=== PATIENT | male | born 1975 | race Caucasian/White ===

== ENCOUNTER 2020-07-11 09:51 | Outpatient (CLI) | payer OTHER, SELFPAY ==
--- NOTE | 2020-07-11 10:03 | EST_ITS ---
Patient Info Name: Kyaw Souza Age: 44 years : 1975 Gender: Male Ht: 71 in Wt: 160 lbs BSA: 1.91 m2 Exam Date: 07/11/2020 10:12 AM Exam Location: [facility] Stress Patient Status: Outpatient Admit Date: 07/11/2020 Staff Ordering Physician: Trish Moses NP Attending Provider: Trish Moses NP Exercise Technologist: Rosibel Pimentel CT Exercise Physician: José Luis Marte DO Exam Type: CA stress test treadmill Study Info An exercise stress test was performed. Summary 1. 1. Negative Ethan exercise stress test for ischemic ST changes by ECG criteria. 2. 2. Good functional capacity, achieving 12 METs of workload. 3. 3. Appropriate HR response to exercise. 4. 4. Appropriate HR recovery at 1 minute post exercise. 5. 5. No imaging with stress testing. 6. 6. Patient informed of the above results. Protocol: Ethan Stress ECG Details Stage: REST Duration (min): 1 min : 2 sec Speed (mph): 0.0 Grade (%): 0 HR (bpm): 74 SBP (mmHg): 109 DBP (mmHg): 74 METS: --- Stage: REST Duration (min): 11 min : 39 sec Speed (mph): 0.0 Grade (%): 0 HR (bpm): 86 SBP (mmHg): 109 DBP (mmHg): 74 METS: --- Stage: STAGE 1 Duration (min): 1 min : 0 sec Speed (mph): 1.7 Grade (%): 10 HR (bpm): 94 SBP (mmHg): 109 DBP (mmHg): 74 METS: --- Stage: STAGE 1 Duration (min): 2 min : 0 sec Speed (mph): 1.7 Grade (%): 10 HR (bpm): 94 SBP (mmHg): 109 DBP (mmHg): 74 METS: --- Stage: STAGE 1 Duration (min): 3 min : 0 sec Speed (mph): 1.7 Grade (%): 10 HR (bpm): 91 SBP (mmHg): 115 DBP (mmHg): 70 METS: --- Stage: STAGE 2 Duration (min): 1 min : 0 sec Speed (mph): 2.5 Grade (%): 12 HR (bpm): 101 SBP (mmHg): 115 DBP (mmHg): 70 METS: --- Stage: STAGE 2 Duration (min): 2 min : 0 sec Speed (mph): 2.5 Grade (%): 12 HR (bpm): 105 SBP (mmHg): 125 DBP (mmHg): 70 METS: --- Stage: STAGE 2 Duration (min): 3 min : 0 sec Speed (mph): 2.5 Grade (%): 12 HR (bpm): 108 SBP (mmHg): 125 DBP (mmHg): 70 METS: --- Stage: STAGE 3 Duration (min): 1 min : 0 sec Speed (mph): 3.4 Grade (%): 14 HR (bpm): 120 SBP (mmHg): 126 DBP (mmHg): 69 METS: --- Stage: STAGE 3 Duration (min): 2 min : 0 sec Speed (mph): 3.4 Grade (%): 14 HR (bpm): 122 SBP (mmHg): 126 DBP (mmHg): 69 METS: --- Stage: STAGE 3 Duration (min): 3 min : 0 sec Speed (mph): 3.4 Grade (%): 14 HR (bpm): 123 SBP (mmHg): 135 DBP (mmHg): 67 METS: --- Stage: STAGE 4 Duration (min): 1 min : 0 sec Speed (mph): 4.2 Grade (%): 16 HR (bpm): 148 SBP (mmHg): 135 DBP (mmHg): 67 METS: --- Stage: STAGE 4 Duration (min): 2 min : 0 sec Speed (mph): 4.2 Grade (%): 16 HR (bpm): 164 SBP (mmHg): 169
== END 2020-07-11 09:52 | disposition home or self-care (01) ==
PROVIDERS: PCP Family Medicine; Visit Provider Nurse Practitioner
DX: R07.9 Chest pain, unspecified (principal)
CPT/HCPCS: 93017

== ENCOUNTER → 2021-07-02 12:48 | Outpatient (CLI) | payer OTHER, SELFPAY ==
--- NOTE | ~2021-07-02 | US_ITS ---
US scrotum doppler INDICATION: Left testicular pain TECHNIQUE: Testicular sonogram utilizing grayscale and color Doppler FINDINGS: The testes are normal in size and appearance. No focal lesions are seen. The right testes measures 4.9 x 2.4 x 2.7 cm centimeters, and the left testis measures 4.7 x 2.3 x 3.2 cm cm. There is normal vascular flow to both testes. There are bilateral epididymal cysts, largest on the left measu ring 11 mm. The right and left epididymides appear normal. There is no varicocele or hydrocele. IMPRESSION: 1. Bilateral epididymal cysts. Reviewed, dictated and finalized at location A.
== END ==
PROVIDERS: PCP Family Medicine; Visit Provider Family Medicine
DX: N50.3 Cyst of epididymis (principal)
CPT/HCPCS: 76870; 93976

== ENCOUNTER 2021-07-22 11:32 | Emergency (ER) | payer OTHER, SELFPAY ==
[2021-07-22 11:42] VITALS: BP 133/87; PULSE 121; RESP 16; TEMP 36.3; O2SAT 100
[2021-07-22] MEDS: AMOXICILLIN/CLAVULANATE K 875-125 MG TAB 1 TABLET PO (13:02)
--- NOTE | 2021-07-22 13:25 | ED.GENADULT ---
HPI - General Adult General Chief complaint: Animal Bite <Ravi Ramsey DO - Last Filed: 07/22/21 14:27> Stated complaint: L hand injury, dog bite <Ravi Ramsey DO - Last Filed: 07/22/21 14:27> Time Seen by Provider: 07/22/21 12:47 <Ravi Ramsey DO - Last Filed: 07/22/21 14:27> Source: RN notes reviewed <Ravi Ramsey DO - Last Filed: 07/22/21 14:27> History of Present Illness HPI narrative: Patient presents emergency room from home for dog bite. Patient states he was on the trail today when he came up on someone who is following him to go individual the phone and patient's dog bit him in the left hand. Patient states that he did dress the wound came to the emergency department as he feels he is likely need sutures. States that the dog did belong to the leadership coach but is unsure of who the leadership coach was. He states he is up-to-date on his tetanus shot denies any other trauma or injury denies any numbness or tingling in extremity <Ravi Ramsey DO - Last Filed: 07/22/21 14:27> Related Data Allergies/adverse reactions: Allergies Allergy/AdvReac Type Severity Reaction Status Date / Time No Known Allergies Allergy Verified 07/22/21 12:04 <Ravi Ramsey DO - Last Filed: 07/22/21 14:27> Review of Systems Review of Systems: Gen.: Denies fevers or chills Musculoskeletal: See HPI Neuro: Denies numbness, tingling, weakness Skin: Denies rash Endo: Denies DM <Ravi Ramsey DO - Last Filed: 07/22/21 14:27> PMF Past Medical History Medical History: Medical History Combined hyperlipidemia History of COVID-19 Vitamin D deficiency <Ravi Ramsey DO - Last Filed: 07/22/21 14:27> Family History Family History: Family History Grandparent Cancer Acute myocardial infarction Father Hyperlipidemia Grandparent Heart disease [place] Grandparent Cancer breast cancer Grandparent Cancer lung cancer <DO Vijay Galicia Last Filed: 07/22/21 14:27> Social History Social History: Social History Smoking status: Never smoker Drinks per week: 4 <Ravi Ramsey DO - Last Filed: 07/22/21 14:27> Exam Narrative: APPEARANCE: No acute distress, nontoxic, resting in bed Eyes: EOMI HEENT: Normocephalic, atraumatic, RESPIRATORY: No respiratory distress MUSCULOSKELETAl: Mild tenderness palpation over the left thenar eminence with a 4 cm V-shaped wound that is linear and deep with mild venous bleeding no foreign body seen there is no tenderness of the dorsal hand in this area he has full flexion-extension of all 5 MCP and IP joints radial pulse 2+ neurovascular intact NEURO: Awake and alert. Following commands, speech normal, no focal deficits SKIN:: Warm, dry. Normal Color no rash or lesions <DO Vijay Galicia Last Filed: 07/22/21 14:27> Course Course Emergency Course: Discussed with patient results of workup and diagnosis. Discussed need for follow-up with primary care, proper use of medication, and reasons to return to the emergency department. Patient understands and agrees to current treatment plan <DO Vijay Galicia Last Filed: 07/22/21 14:27> Vital Signs Vital signs: Vital Signs Temperature 36.3 C L 07/22/21 11:42 Pulse Rate 121 H 07/22/21 11:42 Respiratory Rate 16 07/22/21 11:42 Blood Pressure 133/87 07/22/21 11:42 Pulse Oximetry 100 07/22/21 11:42 Oxygen Delivery Room Air 07/22/21 11:42 Temperature 36.3 C L 07/22/21 11:42 Pulse Rate 121 H 07/22/21 11:42 Respiratory Rate 16 07/22/21 11:42 Blood Pressure 133/87 07/22/21 11:42 Pulse Oximetry 100 07/22/21 11:42 Oxygen Delivery Room Air 07/22/21 11:42 <DO Vijay Galicia Last Filed: 07/22/21 14:27> Vital Signs Temperat
== END 2021-07-22 14:40 | disposition home or self-care (01) ==
PROVIDERS: Emergency Provider Emergency Medicine; PCP Family Medicine
DX: S61.452A Open bite of left hand, initial encounter (principal); E78.5 Hyperlipidemia, unspecified; Z86.16 Personal history of COVID-19; W54.0XXA Bitten by dog, initial encounter
CPT/HCPCS: 12001; 99283; A9270

== ENCOUNTER 2022-03-27 09:49 | Outpatient (CLI) | payer OTHER, SELFPAY ==
[2022-03-28 08:59] LABS: Kit Draw Collected
== END 2022-03-27 09:50 | disposition home or self-care (01) ==
LOC: ANHGOSHLAB 09:51
PROVIDERS: PCP Family Medicine; Visit Provider Family Medicine
DX: E53.8 Deficiency of other specified B group vitamins (principal); R73.9 Hyperglycemia, unspecified; Z79.899 Other long term (current) drug therapy; E78.2 Mixed hyperlipidemia; Z13.29 Encounter for screening for other suspected endocrine disorder; E55.9 Vitamin D deficiency, unspecified; Z00.00 Encounter for general adult medical examination without abnormal findings
CPT/HCPCS: 36415

== ENCOUNTER 2024-07-09 10:49 | Emergency (ER) | payer OTHER, SELFPAY ==
[2024-07-09 11:06] VITALS: BP 113/80; PULSE 70; RESP 16; TEMP 36.6; O2SAT 99
--- NOTE | 2024-07-09 11:08 | ED.LOWEXIN ---
HPI - Extremity Injury (Lower) General Chief Complaint: Wound/Laceration Stated Complaint: LT Leg Injury Time Seen by Provider: 07/09/24 11:08 Source: patient Mode of arrival: ambulatory Limitations: no limitations History of Present Illness HPI Narrative: 48-year-old male presents with laceration to left thigh. Prior to arrival patient was moving landscaping rocks to dig a trench in his yard and rock slipped and hit against left inner thigh causing laceration. Ambulatory with steady gait. Bleeding controlled on arrival. Unsure of last tetanus. All systems reviewed and negative except as noted above. Related Data Home Medications ?Medication ?Instructions ?Recorded ?Confirmed ?Last Taken ?Type No Home Medications 03/30/23 03/30/24 Unknown History Allergies Allergy/AdvReac Type Severity Reaction Status Date / Time No Known Allergies Allergy Verified 07/09/24 11:10 Review of Systems Review of Systems: CONSTITUTIONAL: Denies fever, chills, or sweats. EYES: Denies visual changes, redness, or discharge. ENT: Denies rhinorrhea, congestion, sore throat, or otalgia. CARDIOVASCULAR: Denies chest pain, palpitations, or edema. RESPIRATORY: Denies cough or dyspnea. GASTROINTESTINAL: Denies abdominal pain, nausea, vomiting, or diarrhea. GENITOURINARY: Denies dysuria or hematuria. SKIN: Denies rash or itching. Reports laceration to left inner thigh. MUSCULOSKELETAL: Denies back pain, joint pain, or myalgia. NEUROLOGIC: Denies headache, numbness, or weakness. PSYCHIATRIC: Denies anxiety or depression. All other systems reviewed are negative, except as documented in HPI. [facility] Past Medical History Medical History Vitamin D deficiency Combined hyperlipidemia GERD (gastroesophageal reflux disease) History of COVID-19 Family History Family History Grandparent Cancer Acute myocardial infarction Father Hyperlipidemia Grandparent Heart disease [place] Grandparent Cancer breast cancer Grandparent Cancer lung cancer Social History Social History Smoking status: Never smoker Alcohol intake: current Drinks per week: 4 Substance use: never Substance use type: does not use Lack of Transportation: No Lack of Food: Never True Current Housing: I Have Housing Concerned About Future Housing: No Difficulty Paying Gas/Electric Bills: No Difficulty Paying for Meds: No Currently Unemployed: No Education: Master's Degree or Higher Difficulty w/ Childcare or Family Care: No Gender identity (if verbalized by the patient): Male Spiritual care concerns: No Comments At time of signature, agree with nursing past medical, surgical, social and family history. There is no relevant family history pertinent to the presenting complaint. Exam Narrative: GENERAL: This is a well-nourished, well-developed patient, in no apparent distress. HEAD: normocephalic, atraumatic. EYES: PERRL. Sclera clear/white. Vision is grossly intact. EARS: External ears normal NOSE: External nose normal NECK: Neck supple, non-tender without lymphadenopathy, masses or thyromegaly. CARDIOVASCULAR: Regular rate and rhythm without murmurs, gallops, or rubs. RESPIRATORY: Clear to auscultation. Breath sounds equal bilaterally. No wheezes, rales, or rhonchi. SKIN: warm, Dry, with no suspicious lesions or rash, good texture and turgor. Laceration to left inner thigh approximately 4 cm diameter, keeping at some spots approximately 0.5 cm. Some portions laceration are superficial and do not require suture repair. NEURO: awake, alert, and oriented to person, place and time. There were no obvious focal neurologic abnormalities. EXTREMITIES: No joint tenderness, effusion, or edema noted. Course Course Level of Care: Express Care Visit Vital Signs Vital signs: Vital Signs Temperature 36.6 C 07/09/24 11:06 Pulse Rate 70 07/09/24 11:06 Respiratory Rate 16 07/09/24 11:06 Blood Pressure 113/80 07/09/24 11:06 Pulse Oximetry 99 07/09/24 11:06 Temperature 36.6 C 07/09/24 11:06 Pulse Rate 70 07/09/24 11:06 Respiratory Rate 16 07/09/24 11:06 Blood Pressure 113/80 07/09/24 11:06 Pulse Oximetry 99 07/09/24 11:06 Reviewed Procedures Laceration Laceration 1: Date: 07/09/24 Site: lower extremity (Thigh) Side (If applicable): left Size (cm): 4 Description: linear Depth: simple, single layer Local Anesthetic: lidocaine 1% Amount of anesthesia used (mL): 4 Pre-repair: wound explored and irrigated ====== Skin Level ====== Skin layer closed with: nylon Size (cm): 4-0 Number of sutures: 13 Technique: simple, interrupted ====== Subcutaneous Layer ====== ====== Muscle Layer ====== ====== Tendon Layer ====== MDM - Extremity Injury (Lower) MDM Narrative Medical decision making narrative: Suture repair completed to left thigh. Patient tolerated well. No signs of infection. Tetanus updated. Patient is alert, nontoxic. CMS intact. Discharge Plan Discharge Clinical Impression: Laceration of left thigh Qualifiers: Encounter type: initial encounter Qualified Code(s): S71.112A - Laceration without foreign body, left thigh, initial encounter Patient Disposition: Home Condition: Stable Instructions: Antibiotic Form, Laceration (ED) Additional Instructions: Keep wound clean and dry. May wash with a mild soap and water. Not scrub or pick at sutures. Follow-up in 10 days for suture removal. If you have signs of infection such as drainage, redness, swelling, pain go to the ER or see her primary care physician. Patient Language: Bengali Prescriptions: No Action No Home Medications Follow-up/Referrals: Nimo Cherry MD [Primary Care Provider] - Time of Disposition: 11:48
[2024-07-09] MEDS: TETANUS,DIPHTHERIA,AC PERTUSSIS ADULT (0.5 ML) BOOSTRIX IM (11:22)
== END 2024-07-09 12:14 | disposition home or self-care (01) ==
PROVIDERS: Emergency Provider Nurse Practitioner Family; PCP Family Medicine
DX: S71.112A Laceration without foreign body, left thigh, initial encounter (principal); W22.8XXA Striking against or struck by other objects, initial encounter; Z23 Encounter for immunization; E78.2 Mixed hyperlipidemia; K21.9 Gastro-esophageal reflux disease without esophagitis; Z86.16 Personal history of COVID-19
CPT/HCPCS: 12002; 90471; 90715; 99212; G0463; J2003